=== PATIENT | male | born 1970 | race African-American/Black ===

== ENCOUNTER 2019-05-29 15:07 | Inpatient (IN) | payer OTHER ==
[2019-05-29 17:42] VITALS: BMI 31.3
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
[2019-05-29] MEDS ORDERED: chlordiazePOXIDE HCL 25 MG CAPSULE PO PRN (21:13)
[2019-05-29] MEDS ORDERED: MAGNESIUM HYDROX 2400MG/30ML ORAL SUSPENSION 30 ML CUP PO PRN (21:13)
[2019-05-29] MEDS ORDERED: MAG HYDROX/AL HYDROX/SIMETH 30 ML UNIT-DOSE CUP PO PRN (21:13)
[2019-05-29] MEDS ORDERED: BISMUTH SUBSALICYLATE 524 MG/30 ML UD PO PRN (21:13)
[2019-05-29] MEDS ORDERED: METHOCARBAMOL 500 MG TABLET PO PRN (21:13)
[2019-05-29] MEDS ORDERED: MELATONIN 5 MG TABLETS PO PRN (21:13)
[2019-05-29] MEDS ORDERED: ACETAMINOPHEN 325 MG TABLET (FP) PO PRN ×2 (21:13)
[2019-05-29] MEDS ORDERED: MENTHOL/PHENOL 1 EACH UD MM PRN (21:13)
[2019-05-29] MEDS ORDERED: IBUPROFEN 400 MG TABLET (FP) PO PRN (21:13)
[2019-05-29] MEDS ORDERED: hydrOXYzine PAMOATE 25 MG CAPSULE (FP) PO PRN (21:13)
[2019-05-29] MEDS ORDERED: MAGNESIUM CITRATE 300 ML BOTTLE PO PRN (21:13)
[2019-05-29] MEDS ORDERED: NICOTINE POLACRILEX 4 MG GUM BUC PRN (21:13)
[2019-05-29] MEDS ORDERED: QUEtiapine FUMARATE 100 MG TABLET (FP) PO SCH (22:00)
[2019-05-29] MEDS: chlordiazePOXIDE HCL 25 MG CAPSULE PO SCH (22:44)
[2019-05-29] MEDS: THIAMINE HCL 100 MG TABLET (FP) PO SCH (22:45)
[2019-05-30] MEDS: chlordiazePOXIDE HCL 25 MG CAPSULE PO SCH ×4 (06:07→22:37)
[2019-05-30 09:43] LABS: HEMATOCRIT 39.6 % (35.4-49); MCH 28.7 pg (25.7-33.7); MCHC 32.7 g/dl (32.0-35.9); MEAN CELL VOLUME 87.6 fl (80-96); MEAN PLT VOLUME 9.2 fl (7.5-11.1); PLATELET COUNT 247 K/MM3 (134-434); RBC 4.52 M/mm3 (4.00-5.60); RDW 15.9 % (11.9-15.9); WHITE BLOOD COUNT 3.9 K/mm3 (4.0-10.0)
[2019-05-30] MEDS ORDERED: DIVALPROEX SODIUM 500 MG TABLET E.C. PO SCH (10:00)
[2019-05-30] MEDS: HYDROCHLOROTHIAZIDE 12.5 MG CAPSULE (FP) PO SCH (10:21)
[2019-05-30] MEDS: PRENATAL VITAMINS W/ FOLIC ACID TABLET (FP) PO SCH (10:22)
[2019-05-30] MEDS ORDERED: ACETAMINOPHEN 325 MG TABLET (FP) PO ONE (11:05)
[2019-05-30] MEDS ORDERED: MAGNESIUM CITRATE 300 ML BOTTLE PO ONE ×2 (11:07→14:00)
[2019-05-30] MEDS ORDERED: MAGNESIUM HYDROX 2400MG/30ML ORAL SUSPENSION 30 ML CUP PO ONE (11:07)
[2019-05-30 11:10] LABS: ALBUMIN 3.3 g/dl (3.4-5.0); BILIRUBIN,TOTAL 0.7 mg/dL (0.2-1); BLOOD UREA NITROGEN 8.3 mg/dL (7-18); CALCIUM 8.7 mg/dL (8.5-10.1); CREATININE 0.9 mg/dL (0.55-1.3); POTASSIUM 3.3 mmol/L (3.5-5.1); TOT PROT 6.5 g/dl (6.4-8.2)
--- NOTE | 2019-05-30 11:13 | PN ---
S CIWA - CIWA Score Nausea/Vomitin-No Nausea/No Vomiting Muscle Tremors: 2 Anxiety: 2 Agitation: 2 Paroxysmal Sweats: 1-Minimal Palms Moist Orientation: 0-Oriented Tacttile Disturbances: 0-None Auditory Disturbances: 0-None Visual Disturbances: 0-None Headache: 1-Very Mild CIWA-Ar Total Score: 8 BHS Progress Note (SOAP) Subjective: 48 years old male admitted on 05/29/19 for alcohol withdrawal sx management treating with librium detox regimen c/o headache 08/31 tylenal 650 mg po x 1 c/o small hard stool abdomen + bowel sound x 4 soft no tenderness ate breakfast no nausea no vomiting deneis abdominal pain MOM 30 ml x 1 citroma 300 ml x 1 around 2 pm today senna 2 tabs po hs Objective: 05/30/19 11:15 Vital Signs Temperature 96 F L 05/30/19 09:15 Pulse Rate 75 05/30/19 09:15 Respiratory Rate 20 05/30/19 09:15 Blood Pressure 157/95 05/30/19 09:15 O2 Sat by Pulse Oximetry (%) Laboratory Last Values WBC 3.9 K/mm3 (4.0-10.0) L 05/30/19 08:00 RBC 4.52 M/mm3 (4.00-5.60) 05/30/19 08:00 Hgb 13.0 GM/dL (11.7-16.9) 05/30/19 08:00 Hct 39.6 % (35.4-49) 05/30/19 08:00 MCV 87.6 fl (80-96) 05/30/19 08:00 MCH 28.7 pg (25.7-33.7) 05/30/19 08:00 MCHC 32.7 g/dl (32.0-35.9) 05/30/19 08:00 RDW 15.9 % (11.9-15.9) D 05/30/19 08:00 Plt Count 247 K/MM3 (134-434) 05/30/19 08:00 MPV 9.2 fl (7.5-11.1) 05/30/19 08:00 Sodium 140 mmol/L (136-145) 05/30/19 08:00 Potassium 3.3 mmol/L (3.5-5.1) L 05/30/19 08:00 Chloride 104 mmol/L (98-107) 05/30/19 08:00 Carbon Dioxide 30 mmol/L (21-32) 05/30/19 08:00 Anion Gap 7 MMOL/L (8-16) L 05/30/19 08:00 BUN 8.3 mg/dL (7-18) 05/30/19 08:00 Creatinine 0.9 mg/dL (0.55-1.3) 05/30/19 08:00 Est GFR (CKD-EPI)AfAm 115.83 05/30/19 08:00 Est GFR (CKD-EPI)NonAf 99.94 05/30/19 08:00 POC Glucometer 108 UNITS (80-120) 05/30/19 06:08 Random Glucose 85 mg/dL (74-106) 05/30/19 08:00 Calcium 8.7 mg/dL (8.5-10.1) 05/30/19 08:00 Total Bilirubin 0.7 mg/dL (0.2-1) 05/30/19 08:00 AST 27 U/L (15-37) 05/30/19 08:00 ALT 24 U/L (13-61) 05/30/19 08:00 Alkaline Phosphatase 73 U/L (45-117) 05/30/19 08:00 Total Protein 6.5 g/dl (6.4-8.2) 05/30/19 08:00 Albumin 3.3 g/dl (3.4-5.0) L 05/30/19 08:00 lab noted K+ 3.3 05/30/19 11:17 K+ supplement x 4 days Assessment: 05/30/19 11:18 alcohol withdrawal Plan: librum regimen
[2019-05-30] MEDS: POTASSIUM CHLORIDE ORAL LIQUID 20 MEQ/15 ML PO SCH ×2 (11:40→22:38)
--- NOTE | 2019-05-30 12:41 | CONSULT ---
[facility] Psychiatric Consult - Data Date of interview: 05/30/19 Admission source: [facility] Identifying data: Patient declines interview.
[2019-05-30] MEDS: cloNIDine HCL 0.1 MG TABLET PO PRN (19:03)
[2019-05-30] MEDS: SENNOSIDES 8.6MG TABLET (FP) PO SCH (22:38)
[2019-05-30] MEDS: THIAMINE HCL 100 MG TABLET (FP) PO SCH (22:38)
[2019-05-31] MEDS: chlordiazePOXIDE HCL 25 MG CAPSULE PO SCH ×4 (06:22→22:06)
[2019-05-31] MEDS: PRENATAL VITAMINS W/ FOLIC ACID TABLET (FP) PO SCH (10:09)
[2019-05-31] MEDS: POTASSIUM CHLORIDE ORAL LIQUID 20 MEQ/15 ML PO SCH ×2 (10:11→21:41)
[2019-05-31] MEDS: HYDROCHLOROTHIAZIDE 12.5 MG CAPSULE (FP) PO SCH (10:11)
--- NOTE | 2019-05-31 10:59 | PN ---
S CIWA - CIWA Score Nausea/Vomitin-No Nausea/No Vomiting Muscle Tremors: 2 Anxiety: 2 Agitation: 1-Slight > Activity Paroxysmal Sweats: No Perspiration Orientation: 0-Oriented Tacttile Disturbances: 0-None Auditory Disturbances: 0-None Visual Disturbances: 0-None Headache: 0-None Present CIWA-Ar Total Score: 5 BHS Progress Note (SOAP) Subjective: 48 years old male admitted on 05/29/19 for alcohol withdrawal sx management treating with libirum detox regimen requests to be discharged one day early as per estimated discharge date of 06/03 case discuss with [facility] Objective: 05/31/19 10:58 Vital Signs Temperature 97.0 F L 05/31/19 09:22 Pulse Rate 75 05/31/19 09:22 Respiratory Rate 18 05/31/19 09:22 Blood Pressure 147/103 H 05/31/19 09:22 O2 Sat by Pulse Oximetry (%) Laboratory Last Values WBC 3.9 K/mm3 (4.0-10.0) L 05/30/19 08:00 RBC 4.52 M/mm3 (4.00-5.60) 05/30/19 08:00 Hgb 13.0 GM/dL (11.7-16.9) 05/30/19 08:00 Hct 39.6 % (35.4-49) 05/30/19 08:00 MCV 87.6 fl (80-96) 05/30/19 08:00 MCH 28.7 pg (25.7-33.7) 05/30/19 08:00 MCHC 32.7 g/dl (32.0-35.9) 05/30/19 08:00 RDW 15.9 % (11.9-15.9) D 05/30/19 08:00 Plt Count 247 K/MM3 (134-434) 05/30/19 08:00 MPV 9.2 fl (7.5-11.1) 05/30/19 08:00 Sodium 140 mmol/L (136-145) 05/30/19 08:00 Potassium 3.3 mmol/L (3.5-5.1) L 05/30/19 08:00 Chloride 104 mmol/L (98-107) 05/30/19 08:00 Carbon Dioxide 30 mmol/L (21-32) 05/30/19 08:00 Anion Gap 7 MMOL/L (8-16) L 05/30/19 08:00 BUN 8.3 mg/dL (7-18) 05/30/19 08:00 Creatinine 0.9 mg/dL (0.55-1.3) 05/30/19 08:00 Est GFR (CKD-EPI)AfAm 115.83 05/30/19 08:00 Est GFR (CKD-EPI)NonAf 99.94 05/30/19 08:00 POC Glucometer 108 UNITS (80-120) 05/30/19 06:08 Random Glucose 85 mg/dL (74-106) 05/30/19 08:00 Calcium 8.7 mg/dL (8.5-10.1) 05/30/19 08:00 Total Bilirubin 0.7 mg/dL (0.2-1) 05/30/19 08:00 AST 27 U/L (15-37) 05/30/19 08:00 ALT 24 U/L (13-61) 05/30/19 08:00 Alkaline Phosphatase 73 U/L (45-117) 05/30/19 08:00 Total Protein 6.5 g/dl (6.4-8.2) 05/30/19 08:00 Albumin 3.3 g/dl (3.4-5.0) L 05/30/19 08:00 RPR Titer Nonreactive (NONREACTIVE) 05/30/19 08:00 HIV 1&2 Antibody Screen Negative 05/30/19 08:00 HIV P24 Antigen Negative 05/30/19 08:00 lab noted 05/31/19 11:00 low K+ continue K+ supplement Assessment: 05/31/19 11:00 alcohol withdrawal Plan: librium regimen
--- NOTE | 2019-05-31 20:03 | PN ---
S Progress Note Note: Patient c/o inability to sleep and requesting seroquel or he will sign out. Patient refused to see on Psych on 05/30/19, for review of insomnia/MH meds. Patient informed that a partial dose will be given and no further doses will be provided unless seen by Psych.
[2019-05-31] MEDS: THIAMINE HCL 100 MG TABLET (FP) PO SCH (21:41)
[2019-05-31] MEDS: SENNOSIDES 8.6MG TABLET (FP) PO SCH (21:41)
[2019-05-31] MEDS ORDERED: QUEtiapine FUMARATE 50 MG TABLET PO ONE (23:00)
[2019-05-31] MEDS: cloNIDine HCL 0.1 MG TABLET PO PRN (23:12)
[2019-06-01] MEDS ORDERED: chlordiazePOXIDE HCL 10 MG CAPSULE PO PRN
[2019-06-01] MEDS: chlordiazePOXIDE HCL 10 MG CAPSULE PO SCH ×2 (06:07→10:10)
[2019-06-01] MEDS: HYDROCHLOROTHIAZIDE 12.5 MG CAPSULE (FP) PO SCH (10:10)
[2019-06-01] MEDS: PRENATAL VITAMINS W/ FOLIC ACID TABLET (FP) PO SCH (10:10)
[2019-06-01] MEDS: POTASSIUM CHLORIDE ORAL LIQUID 20 MEQ/15 ML PO SCH (10:11)
--- NOTE | 2019-06-01 11:18 | PN ---
S CIWA - CIWA Score Nausea/Vomitin-No Nausea/No Vomiting Muscle Tremors: 1-None Visible, but [place] Anxiety: 0-No Anxiety, at Ease Agitation: 0-Normal Activity Paroxysmal Sweats: 1-Minimal Palms Moist Orientation: 0-Oriented Tacttile Disturbances: 0-None Auditory Disturbances: 0-None Visual Disturbances: 0-None Headache: 0-None Present CIWA-Ar Total Score: 2 S Progress Note (SOAP) Subjective: 48 years old male admitted on 05/29/19 for alcohol withdrawal sx management treating with librium detox regimen feeling better today prefers to leave one day early as per estimated date of 04/12 case discuss with the nurse routine discharge is appropriated requests to leave the detox unit around 7 am that he is going to traveling far Objective: 06/01/19 11:15 Vital Signs Temperature 97.4 F L 06/01/19 09:33 Pulse Rate 85 06/01/19 09:33 Respiratory Rate 18 06/01/19 09:33 Blood Pressure 140/109 H 06/01/19 09:33 O2 Sat by Pulse Oximetry (%) Laboratory Last Values WBC 3.9 K/mm3 (4.0-10.0) L 05/30/19 08:00 RBC 4.52 M/mm3 (4.00-5.60) 05/30/19 08:00 Hgb 13.0 GM/dL (11.7-16.9) 05/30/19 08:00 Hct 39.6 % (35.4-49) 05/30/19 08:00 MCV 87.6 fl (80-96) 05/30/19 08:00 MCH 28.7 pg (25.7-33.7) 05/30/19 08:00 MCHC 32.7 g/dl (32.0-35.9) 05/30/19 08:00 RDW 15.9 % (11.9-15.9) D 05/30/19 08:00 Plt Count 247 K/MM3 (134-434) 05/30/19 08:00 MPV 9.2 fl (7.5-11.1) 05/30/19 08:00 Sodium 140 mmol/L (136-145) 05/30/19 08:00 Potassium 3.3 mmol/L (3.5-5.1) L 05/30/19 08:00 Chloride 104 mmol/L (98-107) 05/30/19 08:00 Carbon Dioxide 30 mmol/L (21-32) 05/30/19 08:00 Anion Gap 7 MMOL/L (8-16) L 05/30/19 08:00 BUN 8.3 mg/dL (7-18) 05/30/19 08:00 Creatinine 0.9 mg/dL (0.55-1.3) 05/30/19 08:00 Est GFR (CKD-EPI)AfAm 115.83 05/30/19 08:00 Est GFR (CKD-EPI)NonAf 99.94 05/30/19 08:00 POC Glucometer 108 UNITS (80-120) 05/30/19 06:08 Random Glucose 85 mg/dL (74-106) 05/30/19 08:00 Calcium 8.7 mg/dL (8.5-10.1) 05/30/19 08:00 Total Bilirubin 0.7 mg/dL (0.2-1) 05/30/19 08:00 AST 27 U/L (15-37) 05/30/19 08:00 ALT 24 U/L (13-61) 05/30/19 08:00 Alkaline Phosphatase 73 U/L (45-117) 05/30/19 08:00 Total Protein 6.5 g/dl (6.4-8.2) 05/30/19 08:00 Albumin 3.3 g/dl (3.4-5.0) L 05/30/19 08:00 RPR Titer Nonreactive (NONREACTIVE) 05/30/19 08:00 HIV 1&2 Antibody Screen Negative 05/30/19 08:00 HIV P24 Antigen Negative 05/30/19 08:00 lab noted K+ low with supplement patient is [facility] patient agrees to bringing in lab report for follow up 06/01/19 11:17 Assessment: 06/01/19 11:18 alcohol withdrawal Plan: librium regimen
[2019-06-01 13:03] VITALS: BP 130/94; PULSE 78; TEMP 97.5
--- NOTE | 2019-06-01 15:47 | DS ---
[facility] Detox Discharge Summary Admission Date: 05/29/19 Discharge Date: 06/01/19 - History Present History: Alcohol Dependence Additional Comments: 48 years old male admitted on 05/29/19 for alcohol withdrawal sx management treated with librium detox regimen patient tolerated well alert oriented x 3 respiratory clear lungs bilaterally on auscultation extremities full range of motion skin warm and dry Pertinent Past History: patient prefers to leave the detox unit today and contact aftercare program independently case discussed with the nurse routine discharge is appropriated - Physical Exam Results Vital Signs: Vital Signs Temperature 97.5 F L 06/01/19 13:01 Pulse Rate 78 06/01/19 13:01 Respiratory Rate 18 06/01/19 13:01 Blood Pressure 130/94 06/01/19 13:01 O2 Sat by Pulse Oximetry (%) Pertinent Admission Physical Exam Findings: alcohol withdrawal Laboratory Last Values WBC 3.9 K/mm3 (4.0-10.0) L 05/30/19 08:00 RBC 4.52 M/mm3 (4.00-5.60) 05/30/19 08:00 Hgb 13.0 GM/dL (11.7-16.9) 05/30/19 08:00 Hct 39.6 % (35.4-49) 05/30/19 08:00 MCV 87.6 fl (80-96) 05/30/19 08:00 MCH 28.7 pg (25.7-33.7) 05/30/19 08:00 MCHC 32.7 g/dl (32.0-35.9) 05/30/19 08:00 RDW 15.9 % (11.9-15.9) D 05/30/19 08:00 Plt Count 247 K/MM3 (134-434) 05/30/19 08:00 MPV 9.2 fl (7.5-11.1) 05/30/19 08:00 Sodium 140 mmol/L (136-145) 05/30/19 08:00 Potassium 3.3 mmol/L (3.5-5.1) L 05/30/19 08:00 Chloride 104 mmol/L (98-107) 05/30/19 08:00 Carbon Dioxide 30 mmol/L (21-32) 05/30/19 08:00 Anion Gap 7 MMOL/L (8-16) L 05/30/19 08:00 BUN 8.3 mg/dL (7-18) 05/30/19 08:00 Creatinine 0.9 mg/dL (0.55-1.3) 05/30/19 08:00 Est GFR (CKD-EPI)AfAm 115.83 05/30/19 08:00 Est GFR (CKD-EPI)NonAf 99.94 05/30/19 08:00 POC Glucometer 108 UNITS (80-120) 05/30/19 06:08 Random Glucose 85 mg/dL (74-106) 05/30/19 08:00 Calcium 8.7 mg/dL (8.5-10.1) 05/30/19 08:00 Total Bilirubin 0.7 mg/dL (0.2-1) 05/30/19 08:00 AST 27 U/L (15-37) 05/30/19 08:00 ALT 24 U/L (13-61) 05/30/19 08:00 Alkaline Phosphatase 73 U/L (45-117) 05/30/19 08:00 Total Protein 6.5 g/dl (6.4-8.2) 05/30/19 08:00 Albumin 3.3 g/dl (3.4-5.0) L 05/30/19 08:00 RPR Titer Nonreactive (NONREACTIVE) 05/30/19 08:00 HIV 1&2 Antibody Screen Negative 05/30/19 08:00 HIV P24 Antigen Negative 05/30/19 08:00 lab noted patient agrees to bringing in lab report to aftercare facility for follow up encourage the patient to follow up low K+ with community health service provider health teaching on weight loss and smoking cessation - Treatment Hospital Course: Detox Protocol Followed, Detoxed Safely, Responded well, Discharged Condition Good, Rehab Referral Accepted Patient has Accepted a Rehab Referral to: [facility] - Medication Discharge Medications: Ambulatory Orders Hydrochlorothiazide [Hctz] 25 mg PO DAILY 10/20/11 Divalproex [Depakote -] 500 mg PO DAILY #30 tablet.ec 08/20/15 Quetiapine Fumarate "Xr" [Seroquel XR] 300 mg PO BID #60 tablet 08/20/15 - Diagnosis (1) Alcohol dependence with uncomplicated withdrawal Status: Acute (2) DM (diabetes mellitus) Status: Chronic Qualifiers: Diabetes mellitus type: type 2 Diabetes mellitus complication status: without complication Qualified Code(s): E11.9 - Type 2 diabetes mellitus without complications (3) HTN (hypertension) Status: Chronic Qualifiers: Hypertension type: essential hypertension Qualified Code(s): I10 - Essential (primary) hypertension (4) Nicotine dependence Status: Acute Qualifiers: Nicotine product type: cigarettes Substance use status: in withdrawal Qualified Code(s): F17.213 - Nicotine dependence, cigarettes, with withdrawal - AMA Did Patient Leave Against Medical Advice: No CIWA Score - CIWA Score Nausea/Vomitin-No Nausea/No Vomiting Muscle Tremors: 1-None Visible, but [place] Anxiety: 0-No Anxiety, at Ease Agitation: 0-Normal Activity Paroxysmal Sweats: 1-Minimal Palms Moist Orientation: 0-Oriented Tacttile Disturbances: 0-None Auditory Disturbances: 0-None Visual Disturbances: 0-None Headache: 0-None Present CIWA-Ar Total Score: 2
[2019-06-02] MEDS ORDERED: chlordiazePOXIDE HCL 10 MG CAPSULE PO SCH (05:00)
[2019-06-03] MEDS ORDERED: chlordiazePOXIDE HCL 10 MG CAPSULE PO ONE (05:00)
== END 2019-06-01 15:40 | disposition home or self-care (01) | DRG 775 ==
LOC: YASAS 15:07 → Y3N 21:51
PROVIDERS: ADMIT Allergy & Immunology; ATTEND Allergy & Immunology
PROC: HZ2ZZZZ Detoxification Services for Substance Abuse Treatment (ICD-10-PCS; principal; 2019-05-29)
DX: F10.230 Alcohol dependence with withdrawal, uncomplicated (principal); F17.213 Nicotine dependence, cigarettes, with withdrawal; F25.9 Schizoaffective disorder, unspecified; F41.8 Other specified anxiety disorders; F32.9 Major depressive disorder, single episode, unspecified; E87.6 Hypokalemia; I10 Essential (primary) hypertension; E11.9 Type 2 diabetes mellitus without complications; K21.9 Gastro-esophageal reflux disease without esophagitis; Z91.013 Allergy to seafood
CPT/HCPCS: 36415; 80053; 82962; 85027; 86593; 87389; J0735

== ENCOUNTER 2020-07-15 13:02 | Inpatient (IN) | payer OTHER ==
[2020-07-15] MEDS ORDERED: BISMUTH SUBSALICYLATE 262 MG/15 ML BTL PO PRN (14:17)
[2020-07-15] MEDS ORDERED: MENTHOL/PHENOL 1 EACH UD MM PRN (14:17)
[2020-07-15] MEDS ORDERED: MAGNESIUM HYDROX 2400MG/30ML ORAL SUSPENSION 30 ML CUP PO PRN (14:17)
[2020-07-15] MEDS ORDERED: IBUPROFEN 400 MG TABLET (FP) PO PRN (14:17)
[2020-07-15] MEDS ORDERED: chlordiazePOXIDE HCL 25 MG CAPSULE PO PRN (14:17)
[2020-07-15] MEDS ORDERED: ACETAMINOPHEN 325 MG TABLET (FP) PO PRN (14:17)
[2020-07-15] MEDS ORDERED: ONDANSETRON *ODT* 4 MG TABLET SL PRN (14:17)
[2020-07-15] MEDS ORDERED: MAG HYDROX/AL HYDROX/SIMETH 30 ML UNIT-DOSE CUP PO PRN (14:17)
[2020-07-15] MEDS ORDERED: MAGNESIUM CITRATE 300 ML BOTTLE PO PRN (14:17)
[2020-07-15 14:31] VITALS: BMI 31.7
[2020-07-15] MEDS: chlordiazePOXIDE HCL 25 MG CAPSULE PO SCH ×2 (16:19→22:32)
[2020-07-15] MEDS: FAMOTIDINE 20 MG TABLET PO SCH ×2 (16:19→22:32)
[2020-07-15] MEDS: METHOCARBAMOL 500 MG TABLET PO PRN (16:20)
[2020-07-15] MEDS: NICOTINE POLACRILEX 2 MG GUM BUC PRN (16:21)
[2020-07-15] MEDS: NICOTINE 7 MG/24 HOURS TOPICAL PATCH TD SCH (16:21)
[2020-07-15] MEDS: PRENATAL VITAMINS W/ FOLIC ACID TABLET (FP) PO SCH (16:21)
[2020-07-15 16:34] LABS: POTASSIUM 3.8 mmol/L (3.5-5.1)
[2020-07-15 16:39] LABS: HEMATOCRIT 44.2 % (35.4-49); HEMOGLOBIN 14.5 GM/dL (11.7-16.9); MCH 28.8 pg (25.7-33.7); MCHC 32.7 g/dl (32.0-35.9); MEAN CELL VOLUME 88.1 fl (80-96); MEAN PLT VOLUME 8.8 fl (7.5-11.1); PLATELET COUNT 250 K/MM3 (134-434); RBC 5.01 M/mm3 (4.00-5.60); RDW 14.5 % (11.9-15.9); WHITE BLOOD COUNT 6.1 K/mm3 (4.0-10.0)
[2020-07-15 16:47] LABS: ALBUMIN 4.4 g/dl (3.4-5.0); BLOOD UREA NITROGEN 14.7 mg/dL (7-18); CALCIUM 8.6 mg/dL (8.5-10.1)
[2020-07-15 16:51] LABS: CREATININE 1.1 mg/dL (0.55-1.3)
[2020-07-15 16:52] LABS: BILIRUBIN,TOTAL 0.4 mg/dL (0.2-1); TOT PROT 8.4 g/dl (6.4-8.2)
[2020-07-15] MEDS: hydrOXYzine PAMOATE 25 MG CAPSULE (FP) PO SCH ×2 (17:59→22:32)
[2020-07-15] MEDS: MINERAL OIL/PETROLAT/WATER TOPICAL CREAM 113 GM JAR TP SCH (22:32)
[2020-07-15] MEDS: THIAMINE HCL 100 MG TABLET (FP) PO SCH (22:32)
[2020-07-15] MEDS: MELATONIN 5 MG TABLETS PO SCH (22:32)
[2020-07-16] MEDS: chlordiazePOXIDE HCL 25 MG CAPSULE PO SCH ×4 (05:20→22:05)
[2020-07-16] MEDS: hydrOXYzine PAMOATE 25 MG CAPSULE (FP) PO SCH ×2 (05:21→10:02)
[2020-07-16] MEDS: PRENATAL VITAMINS W/ FOLIC ACID TABLET (FP) PO SCH (10:03)
[2020-07-16] MEDS: NICOTINE 7 MG/24 HOURS TOPICAL PATCH TD SCH (10:03)
[2020-07-16] MEDS: FAMOTIDINE 20 MG TABLET PO SCH ×2 (10:03→22:07)
[2020-07-16] MEDS: MINERAL OIL/PETROLAT/WATER TOPICAL CREAM 113 GM JAR TP SCH ×2 (10:06→22:08)
[2020-07-16] MEDS: NICOTINE POLACRILEX 2 MG GUM BUC PRN (10:06)
[2020-07-16] MEDS ORDERED: hydrOXYzine PAMOATE 25 MG CAPSULE (FP) PO PRN (11:53)
[2020-07-16 13:53] LABS: HIV INTERPRETATION NEGATIVE (NEGATIVE)
[2020-07-16 17:48] LABS: EPI CELLS >36 /uL (0-25.1); HYALINE CASTS 4 /uL (0-3.1); PH,URINE 5.5 (5.0-8.0); URINE APPEARANCE CLEAR; URINE BACTERIA 447 /uL (0-1359); URINE BILIRUBIN NEGATIVE (NEGATIVE); URINE COLOR YELLOW; URINE GLUCOSE (UA) 2+ (NEGATIVE); URINE KETONE TRACE (NEGATIVE); URINE LEUK ESTERASE 1+ (NEGATIVE); URINE NITRITE NEGATIVE (NEGATIVE); URINE PROTEIN NEGATIVE (NEGATIVE); URINE RBC 6 /uL (0-23.9); URINE WBC 53 /uL (0-25.8)
[2020-07-16] MEDS ORDERED: QUEtiapine FUMARATE 50 MG TABLET PO SCH (22:00)
[2020-07-16] MEDS: METHOCARBAMOL 500 MG TABLET PO PRN (22:04)
[2020-07-16] MEDS: THIAMINE HCL 100 MG TABLET (FP) PO SCH (22:04)
[2020-07-16] MEDS: dilTIAZem HCL 60 MG TABLET PO SCH (22:04)
[2020-07-16] MEDS: MELATONIN 5 MG TABLETS PO SCH (22:05)
[2020-07-16] MEDS: DIVALPROEX SODIUM 500 MG TABLET E.C. PO SCH (22:05)
[2020-07-17] MEDS: chlordiazePOXIDE HCL 25 MG CAPSULE PO SCH ×2 (05:13→10:09)
[2020-07-17 09:39] VITALS: BP 107/65; PULSE 72; TEMP 96.8
[2020-07-17] MEDS ORDERED: HYDROCHLOROTHIAZIDE 25 MG TABLET (FP) PO SCH (10:00)
[2020-07-17] MEDS: PRENATAL VITAMINS W/ FOLIC ACID TABLET (FP) PO SCH (10:09)
[2020-07-17] MEDS: FAMOTIDINE 20 MG TABLET PO SCH (10:09)
[2020-07-17] MEDS: DIVALPROEX SODIUM 500 MG TABLET E.C. PO SCH (10:09)
[2020-07-17] MEDS: MINERAL OIL/PETROLAT/WATER TOPICAL CREAM 113 GM JAR TP SCH (10:11)
[2020-07-17] MEDS: NICOTINE 7 MG/24 HOURS TOPICAL PATCH TD SCH (10:11)
[2020-07-17] MEDS: dilTIAZem HCL 60 MG TABLET PO SCH (10:11)
[2020-07-18] MEDS ORDERED: chlordiazePOXIDE HCL 10 MG CAPSULE PO PRN
[2020-07-18] MEDS ORDERED: chlordiazePOXIDE HCL 10 MG CAPSULE PO SCH (05:00)
[2020-07-19] MEDS ORDERED: chlordiazePOXIDE HCL 10 MG CAPSULE PO SCH (05:00)
[2020-07-20] MEDS ORDERED: chlordiazePOXIDE HCL 10 MG CAPSULE PO ONE (05:00)
== END 2020-07-17 10:52 | disposition left against medical advice (07) | DRG 770 ==
LOC: YASAS 13:02 → Y3N 14:29
PROVIDERS: ADMIT Allergy & Immunology; ATTEND Allergy & Immunology
PROC: HZ2ZZZZ Detoxification Services for Substance Abuse Treatment (ICD-10-PCS; principal; 2020-07-15)
DX: F10.230 Alcohol dependence with withdrawal, uncomplicated (principal); F14.20 Cocaine dependence, uncomplicated; F17.210 Nicotine dependence, cigarettes, uncomplicated; F25.1 Schizoaffective disorder, depressive type; F19.24 Other psychoactive substance dependence with psychoactive substance-induced mood disorder; G47.00 Insomnia, unspecified; I48.91 Unspecified atrial fibrillation; K21.9 Gastro-esophageal reflux disease without esophagitis; E11.9 Type 2 diabetes mellitus without complications; M54.5 Low back pain; G89.29 Other chronic pain; Z91.013 Allergy to seafood; Z91.19 Patient's noncompliance with other medical treatment and regimen
CPT/HCPCS: 36415; 80053; 80164; 81003; 85027; 86780; 87389; C9803; U0003

== ENCOUNTER 2020-09-05 10:41 | Inpatient (IN) | payer OTHER ==
[2020-09-05 11:36] VITALS: BMI 34.3
[2020-09-05] MEDS ORDERED: chlordiazePOXIDE HCL 25 MG CAPSULE PO PRN (12:01)
[2020-09-05] MEDS ORDERED: MENTHOL/PHENOL 1 EACH UD MM PRN (12:01)
[2020-09-05] MEDS ORDERED: ONDANSETRON *ODT* 4 MG TABLET SL PRN (12:01)
[2020-09-05] MEDS ORDERED: MAGNESIUM CITRATE 300 ML BOTTLE PO PRN (12:01)
[2020-09-05] MEDS ORDERED: MAGNESIUM HYDROX 2400MG/30ML ORAL SUSPENSION 30 ML CUP PO PRN (12:01)
[2020-09-05] MEDS ORDERED: IBUPROFEN 400 MG TABLET (FP) PO PRN (12:01)
[2020-09-05] MEDS ORDERED: NICOTINE POLACRILEX 2 MG GUM BUC PRN (12:01)
[2020-09-05] MEDS ORDERED: ACETAMINOPHEN 325 MG TABLET (FP) PO PRN ×2 (12:01)
[2020-09-05] MEDS ORDERED: MAG HYDROX/AL HYDROX/SIMETH 30 ML UNIT-DOSE CUP PO PRN (12:01)
[2020-09-05] MEDS ORDERED: METHOCARBAMOL 500 MG TABLET PO PRN (12:01)
[2020-09-05] MEDS ORDERED: BISMUTH SUBSALICYLATE 262 MG/15 ML BTL PO PRN (12:01)
[2020-09-05] MEDS: hydrOXYzine PAMOATE 25 MG CAPSULE (FP) PO SCH ×3 (13:14→23:00)
[2020-09-05] MEDS: PRENATAL VITAMINS W/ FOLIC ACID TABLET (FP) PO SCH (13:16)
[2020-09-05] MEDS: chlordiazePOXIDE HCL 25 MG CAPSULE PO SCH ×3 (13:16→22:57)
[2020-09-05 14:37] LABS: CALCIUM 8.8 mg/dL (8.5-10.1)
[2020-09-05 14:38] LABS: ALBUMIN 3.8 g/dl (3.4-5.0); BLOOD UREA NITROGEN 15.9 mg/dL (7-18)
[2020-09-05 14:41] LABS: CREATININE 1.1 mg/dL (0.55-1.3)
[2020-09-05 14:42] LABS: BILIRUBIN,TOTAL 0.4 mg/dL (0.2-1); TOT PROT 7.4 g/dl (6.4-8.2)
[2020-09-05 14:58] LABS: HEMATOCRIT 40.6 % (35.4-49); HEMOGLOBIN 13.6 GM/dL (11.7-16.9); MCH 29.7 pg (25.7-33.7); MCHC 33.6 g/dl (32.0-35.9); MEAN CELL VOLUME 88.4 fl (80-96); MEAN PLT VOLUME 8.4 fl (7.5-11.1); PLATELET COUNT 297 K/MM3 (134-434); RBC 4.59 M/mm3 (4.00-5.60); RDW 14.6 % (11.9-15.9); WHITE BLOOD COUNT 5.1 K/mm3 (4.0-10.0)
[2020-09-05 15:29] LABS: HIV INTERPRETATION NEGATIVE (NEGATIVE)
[2020-09-05] MEDS: dilTIAZem HCL 60 MG TABLET PO SCH (22:00)
[2020-09-05] MEDS: PANTOPRAZOLE 40 MG TABLET PO SCH (22:57)
[2020-09-05] MEDS: MELATONIN 5 MG TABLETS PO SCH (22:58)
[2020-09-05] MEDS: THIAMINE HCL 100 MG TABLET (FP) PO SCH (22:59)
[2020-09-06] MEDS: chlordiazePOXIDE HCL 25 MG CAPSULE PO SCH ×4 (07:05→23:34)
[2020-09-06] MEDS: hydrOXYzine PAMOATE 25 MG CAPSULE (FP) PO SCH ×5 (07:05→23:34)
[2020-09-06] MEDS: PRENATAL VITAMINS W/ FOLIC ACID TABLET (FP) PO SCH (10:21)
[2020-09-06] MEDS: NICOTINE 21 MG/24 HOURS TOPICAL PATCH TD SCH (10:22)
[2020-09-06] MEDS: PANTOPRAZOLE 40 MG TABLET PO SCH ×2 (10:22→23:34)
[2020-09-06] MEDS: dilTIAZem HCL 60 MG TABLET PO SCH ×2 (10:22→23:34)
[2020-09-06] MEDS: HYDROCHLOROTHIAZIDE 25 MG TABLET (FP) PO SCH (12:57)
[2020-09-06] MEDS: THIAMINE HCL 100 MG TABLET (FP) PO SCH (23:34)
[2020-09-06] MEDS: MELATONIN 5 MG TABLETS PO SCH (23:34)
[2020-09-07] MEDS: hydrOXYzine PAMOATE 25 MG CAPSULE (FP) PO SCH ×5 (06:18→22:16)
[2020-09-07] MEDS: chlordiazePOXIDE HCL 25 MG CAPSULE PO SCH ×4 (06:19→22:20)
[2020-09-07] MEDS: HYDROCHLOROTHIAZIDE 25 MG TABLET (FP) PO SCH (11:14)
[2020-09-07] MEDS: PANTOPRAZOLE 40 MG TABLET PO SCH ×2 (11:14→22:16)
[2020-09-07] MEDS: dilTIAZem HCL 60 MG TABLET PO SCH ×2 (11:15→22:16)
[2020-09-07] MEDS: PRENATAL VITAMINS W/ FOLIC ACID TABLET (FP) PO SCH (11:15)
[2020-09-07] MEDS: NICOTINE 21 MG/24 HOURS TOPICAL PATCH TD SCH (11:15)
[2020-09-07] MEDS ORDERED: dilTIAZem HCL 60 MG TABLET PO SCH (22:00)
[2020-09-07] MEDS: THIAMINE HCL 100 MG TABLET (FP) PO SCH (22:16)
[2020-09-07] MEDS: MELATONIN 5 MG TABLETS PO SCH (22:19)
[2020-09-08] MEDS ORDERED: chlordiazePOXIDE HCL 10 MG CAPSULE PO PRN
[2020-09-08] MEDS: chlordiazePOXIDE HCL 10 MG CAPSULE PO SCH ×4 (06:10→23:44)
[2020-09-08] MEDS: hydrOXYzine PAMOATE 25 MG CAPSULE (FP) PO SCH ×5 (06:11→22:17)
[2020-09-08] MEDS: dilTIAZem HCL 60 MG TABLET PO SCH ×3 (06:13→22:17)
[2020-09-08] MEDS: PANTOPRAZOLE 40 MG TABLET PO SCH ×2 (10:08→22:17)
[2020-09-08] MEDS: NICOTINE 21 MG/24 HOURS TOPICAL PATCH TD SCH (10:08)
[2020-09-08] MEDS: HYDROCHLOROTHIAZIDE 25 MG TABLET (FP) PO SCH (10:08)
[2020-09-08] MEDS: PRENATAL VITAMINS W/ FOLIC ACID TABLET (FP) PO SCH (10:08)
[2020-09-08] MEDS: THIAMINE HCL 100 MG TABLET (FP) PO SCH (22:16)
[2020-09-08] MEDS: MELATONIN 5 MG TABLETS PO SCH (22:17)
[2020-09-09] MEDS: dilTIAZem HCL 60 MG TABLET PO SCH ×3 (07:26→22:10)
[2020-09-09] MEDS: chlordiazePOXIDE HCL 10 MG CAPSULE PO SCH ×2 (07:26→18:10)
[2020-09-09] MEDS: hydrOXYzine PAMOATE 25 MG CAPSULE (FP) PO SCH ×5 (07:28→22:09)
[2020-09-09] MEDS: PRENATAL VITAMINS W/ FOLIC ACID TABLET (FP) PO SCH (10:18)
[2020-09-09] MEDS: NICOTINE 21 MG/24 HOURS TOPICAL PATCH TD SCH (10:18)
[2020-09-09] MEDS: HYDROCHLOROTHIAZIDE 25 MG TABLET (FP) PO SCH (10:18)
[2020-09-09] MEDS: PANTOPRAZOLE 40 MG TABLET PO SCH ×2 (10:18→22:09)
[2020-09-09] MEDS: THIAMINE HCL 100 MG TABLET (FP) PO SCH (22:09)
[2020-09-09] MEDS: MELATONIN 5 MG TABLETS PO SCH (22:09)
[2020-09-10] MEDS ORDERED: chlordiazePOXIDE HCL 10 MG CAPSULE PO ONE (05:00)
[2020-09-10] MEDS: hydrOXYzine PAMOATE 25 MG CAPSULE (FP) PO SCH ×2 (06:28→10:16)
[2020-09-10] MEDS: dilTIAZem HCL 60 MG TABLET PO SCH (06:28)
[2020-09-10 09:21] VITALS: BP 145/100; PULSE 77; TEMP 98
[2020-09-10] MEDS: HYDROCHLOROTHIAZIDE 25 MG TABLET (FP) PO SCH (10:15)
[2020-09-10] MEDS: PRENATAL VITAMINS W/ FOLIC ACID TABLET (FP) PO SCH (10:15)
[2020-09-10] MEDS: NICOTINE 21 MG/24 HOURS TOPICAL PATCH TD SCH (10:15)
[2020-09-10] MEDS: PANTOPRAZOLE 40 MG TABLET PO SCH (10:15)
== END 2020-09-10 14:22 | disposition other institution (70) | DRG 775 ==
LOC: YASAS 10:41 → Y6N 12:08
PROVIDERS: ADMIT Allergy & Immunology; ATTEND Allergy & Immunology
PROC: HZ2ZZZZ Detoxification Services for Substance Abuse Treatment (ICD-10-PCS; principal; 2020-09-05)
DX: F10.230 Alcohol dependence with withdrawal, uncomplicated (principal); F12.20 Cannabis dependence, uncomplicated; F17.213 Nicotine dependence, cigarettes, with withdrawal; F31.9 Bipolar disorder, unspecified; F41.9 Anxiety disorder, unspecified; G47.00 Insomnia, unspecified; I48.91 Unspecified atrial fibrillation; I10 Essential (primary) hypertension; I35.1 Nonrheumatic aortic (valve) insufficiency; K21.9 Gastro-esophageal reflux disease without esophagitis; E11.9 Type 2 diabetes mellitus without complications; M54.5 Low back pain; G89.29 Other chronic pain
CPT/HCPCS: 36415; 80053; 85027; 86780; 87389; C9803; U0003; U0005

== ENCOUNTER 2020-09-10 14:03 | Inpatient (IN) | payer OTHER ==
[2020-09-10] MEDS ORDERED: LOPERAMIDE HCL 2 MG CAPSULE PO PRN (14:13)
[2020-09-10] MEDS ORDERED: guaiFENesin 200 MG/10 ML 10 ML UNIT-DOSE CUPS PO PRN (14:13)
[2020-09-10] MEDS ORDERED: MAG HYDROX/AL HYDROX/SIMETH 30 ML UNIT-DOSE CUP PO PRN (14:13)
[2020-09-10] MEDS ORDERED: IBUPROFEN 400 MG TABLET (FP) PO PRN (14:13)
[2020-09-10] MEDS ORDERED: MENTHOL/PHENOL 1 EACH UD MM PRN (14:13)
[2020-09-10] MEDS ORDERED: ACETAMINOPHEN 325 MG TABLET (FP) PO PRN (14:13)
[2020-09-10] MEDS ORDERED: P-EPHED 60MG/TRIPROLIDI 2.5MG TABLET PO PRN (14:13)
[2020-09-10] MEDS ORDERED: MAGNESIUM HYDROX 2400MG/30ML ORAL SUSPENSION 30 ML CUP PO PRN (14:13)
[2020-09-10] MEDS ORDERED: MAGNESIUM CITRATE 300 ML BOTTLE PO PRN (14:13)
[2020-09-10] MEDS: THIAMINE HCL 100 MG TABLET (FP) PO SCH (21:09)
[2020-09-10] MEDS: MELATONIN 5 MG TABLETS PO PRN (21:09)
[2020-09-10] MEDS: DIVALPROEX SODIUM 500 MG TABLET E.C. PO SCH (21:11)
[2020-09-10] MEDS: PANTOPRAZOLE 40 MG TABLET PO SCH (21:11)
[2020-09-10] MEDS ORDERED: MELATONIN 5 MG TABLETS PO SCH (22:00)
[2020-09-10] MEDS ORDERED: dilTIAZem HCL 60 MG TABLET PO SCH (22:00)
[2020-09-11] MEDS: PANTOPRAZOLE 40 MG TABLET PO SCH ×2 (10:46→21:45)
[2020-09-11] MEDS: DIVALPROEX SODIUM 500 MG TABLET E.C. PO SCH ×2 (10:46→21:46)
[2020-09-11] MEDS: PRENATAL VITAMINS W/ FOLIC ACID TABLET (FP) PO SCH (10:46)
[2020-09-11] MEDS: HYDROCHLOROTHIAZIDE 25 MG TABLET (FP) PO SCH (10:47)
[2020-09-11] MEDS: dilTIAZem HCL 60 MG TABLET PO SCH (17:49)
[2020-09-11] MEDS: THIAMINE HCL 100 MG TABLET (FP) PO SCH (21:46)
[2020-09-11] MEDS: MELATONIN 5 MG TABLETS PO PRN (21:47)
[2020-09-12] MEDS: dilTIAZem HCL 60 MG TABLET PO SCH ×2 (06:14→17:46)
[2020-09-12] MEDS: DIVALPROEX SODIUM 500 MG TABLET E.C. PO SCH ×2 (09:58→21:01)
[2020-09-12] MEDS: PANTOPRAZOLE 40 MG TABLET PO SCH ×2 (09:58→21:01)
[2020-09-12] MEDS: HYDROCHLOROTHIAZIDE 25 MG TABLET (FP) PO SCH (09:58)
[2020-09-12] MEDS: PRENATAL VITAMINS W/ FOLIC ACID TABLET (FP) PO SCH (09:58)
[2020-09-12] MEDS: MELATONIN 5 MG TABLETS PO PRN (21:00)
[2020-09-12] MEDS: THIAMINE HCL 100 MG TABLET (FP) PO SCH (21:00)
[2020-09-13] MEDS: dilTIAZem HCL 60 MG TABLET PO SCH ×2 (06:46→18:51)
[2020-09-13] MEDS: PRENATAL VITAMINS W/ FOLIC ACID TABLET (FP) PO SCH (10:25)
[2020-09-13] MEDS: HYDROCHLOROTHIAZIDE 25 MG TABLET (FP) PO SCH (10:25)
[2020-09-13] MEDS: DIVALPROEX SODIUM 500 MG TABLET E.C. PO SCH ×2 (10:26→21:06)
[2020-09-13] MEDS: PANTOPRAZOLE 40 MG TABLET PO SCH ×2 (10:26→21:06)
[2020-09-13] MEDS: THIAMINE HCL 100 MG TABLET (FP) PO SCH (21:06)
[2020-09-13] MEDS: MELATONIN 5 MG TABLETS PO PRN (21:07)
[2020-09-14 05:09] LABS: SARS-CoV-2 NAA Not Detected (Not Detected)
[2020-09-14] MEDS: dilTIAZem HCL 60 MG TABLET PO SCH ×2 (06:48→17:18)
[2020-09-14] MEDS: NICOTINE POLACRILEX 2 MG GUM BUC PRN ×3 (07:36→21:05)
[2020-09-14] MEDS: PRENATAL VITAMINS W/ FOLIC ACID TABLET (FP) PO SCH (10:23)
[2020-09-14] MEDS: PANTOPRAZOLE 40 MG TABLET PO SCH ×2 (10:23→21:04)
[2020-09-14] MEDS: HYDROCHLOROTHIAZIDE 25 MG TABLET (FP) PO SCH (10:23)
[2020-09-14] MEDS: DIVALPROEX SODIUM 500 MG TABLET E.C. PO SCH ×2 (10:24→21:04)
[2020-09-14] MEDS: MELATONIN 5 MG TABLETS PO PRN (21:04)
[2020-09-14] MEDS: THIAMINE HCL 100 MG TABLET (FP) PO SCH (21:04)
[2020-09-15] MEDS: dilTIAZem HCL 60 MG TABLET PO SCH ×2 (05:58→17:37)
[2020-09-15] MEDS ORDERED: cloNIDine HCL 0.1 MG TABLET PO ONE (07:21)
[2020-09-15] MEDS: DIVALPROEX SODIUM 500 MG TABLET E.C. PO SCH ×2 (10:09→21:12)
[2020-09-15] MEDS: NICOTINE POLACRILEX 2 MG GUM BUC PRN ×2 (10:09→17:38)
[2020-09-15] MEDS: PRENATAL VITAMINS W/ FOLIC ACID TABLET (FP) PO SCH (10:09)
[2020-09-15] MEDS: PANTOPRAZOLE 40 MG TABLET PO SCH ×2 (10:09→21:12)
[2020-09-15] MEDS: HYDROCHLOROTHIAZIDE 25 MG TABLET (FP) PO SCH (10:09)
[2020-09-15] MEDS: MELATONIN 5 MG TABLETS PO PRN (21:13)
[2020-09-15] MEDS: THIAMINE HCL 100 MG TABLET (FP) PO SCH (21:54)
[2020-09-16] MEDS: dilTIAZem HCL 60 MG TABLET PO SCH ×2 (06:14→17:18)
[2020-09-16] MEDS: DIVALPROEX SODIUM 500 MG TABLET E.C. PO SCH ×2 (09:39→21:16)
[2020-09-16] MEDS: HYDROCHLOROTHIAZIDE 25 MG TABLET (FP) PO SCH (09:39)
[2020-09-16] MEDS: PRENATAL VITAMINS W/ FOLIC ACID TABLET (FP) PO SCH (09:39)
[2020-09-16] MEDS: NICOTINE POLACRILEX 2 MG GUM BUC PRN (09:39)
[2020-09-16] MEDS: PANTOPRAZOLE 40 MG TABLET PO SCH ×2 (10:01→21:16)
[2020-09-16] MEDS: TOLNAFTATE 1% CREAM 15 GM TUBE TP SCH ×2 (13:20→21:17)
[2020-09-16] MEDS: THIAMINE HCL 100 MG TABLET (FP) PO SCH (21:16)
[2020-09-16] MEDS: MELATONIN 5 MG TABLETS PO PRN (21:16)
[2020-09-17] MEDS: dilTIAZem HCL 60 MG TABLET PO SCH ×2 (06:00→17:37)
[2020-09-17] MEDS: TOLNAFTATE 1% CREAM 15 GM TUBE TP SCH ×2 (10:08→21:03)
[2020-09-17] MEDS: PANTOPRAZOLE 40 MG TABLET PO SCH ×2 (10:08→21:01)
[2020-09-17] MEDS: HYDROCHLOROTHIAZIDE 25 MG TABLET (FP) PO SCH (10:08)
[2020-09-17] MEDS: PRENATAL VITAMINS W/ FOLIC ACID TABLET (FP) PO SCH (10:08)
[2020-09-17] MEDS: DIVALPROEX SODIUM 500 MG TABLET E.C. PO SCH ×2 (10:08→21:01)
[2020-09-17] MEDS: NICOTINE POLACRILEX 2 MG GUM BUC PRN (10:09)
[2020-09-17] MEDS: THIAMINE HCL 100 MG TABLET (FP) PO SCH (21:00)
[2020-09-17] MEDS: MELATONIN 5 MG TABLETS PO PRN (21:01)
[2020-09-18] MEDS: dilTIAZem HCL 60 MG TABLET PO SCH ×2 (06:25→17:59)
[2020-09-18 07:08] VITALS: TEMP 97.3
[2020-09-18] MEDS: NICOTINE POLACRILEX 2 MG GUM BUC PRN (08:38)
[2020-09-18] MEDS: PRENATAL VITAMINS W/ FOLIC ACID TABLET (FP) PO SCH (10:16)
[2020-09-18] MEDS: PANTOPRAZOLE 40 MG TABLET PO SCH (10:16)
[2020-09-18] MEDS: HYDROCHLOROTHIAZIDE 25 MG TABLET (FP) PO SCH (10:16)
[2020-09-18] MEDS: DIVALPROEX SODIUM 500 MG TABLET E.C. PO SCH (10:16)
[2020-09-18] MEDS: TOLNAFTATE 1% CREAM 15 GM TUBE TP SCH (10:19)
[2020-09-18 20:35] VITALS: BP 173/103; PULSE 90
== END 2020-09-18 20:30 | disposition home or self-care (01) | DRG 772 ==
LOC: YASAS 14:03 → Y3W 14:04
PROVIDERS: ADMIT Allergy & Immunology; ATTEND Allergy & Immunology
PROC: HZ42ZZZ Group Counseling for Substance Abuse Treatment, Cognitive-Behavioral (ICD-10-PCS; principal; 2020-09-10)
DX: F10.20 Alcohol dependence, uncomplicated (principal); F12.20 Cannabis dependence, uncomplicated; F17.210 Nicotine dependence, cigarettes, uncomplicated; F19.282 Other psychoactive substance dependence with psychoactive substance-induced sleep disorder; F19.24 Other psychoactive substance dependence with psychoactive substance-induced mood disorder; F25.1 Schizoaffective disorder, depressive type; I48.91 Unspecified atrial fibrillation; E11.9 Type 2 diabetes mellitus without complications; K21.9 Gastro-esophageal reflux disease without esophagitis; I35.1 Nonrheumatic aortic (valve) insufficiency; M54.5 Low back pain; G89.29 Other chronic pain
CPT/HCPCS: C9803; J0735; U0003; U0005

== ENCOUNTER 2020-12-02 15:09 | Inpatient (IN) | payer OTHER ==
[2020-12-02] MEDS ORDERED: LISINOPRIL 10 MG TABLET PO ONE (15:47)
[2020-12-02 15:58] VITALS: BMI 32.3
[2020-12-02] MEDS ORDERED: cloNIDine HCL 0.1 MG TABLET PO ONE (17:23)
[2020-12-02] MEDS ORDERED: cloNIDine HCL 0.1 MG TABLET ONE (17:32)
[2020-12-02] MEDS ORDERED: NICOTINE POLACRILEX 2 MG GUM BUC PRN (17:35)
[2020-12-02] MEDS ORDERED: BISMUTH SUBSALICYLATE 524 MG/30 ML PO PRN (17:35)
[2020-12-02] MEDS ORDERED: MAGNESIUM CITRATE 300 ML BOTTLE PO PRN (17:35)
[2020-12-02] MEDS ORDERED: MENTHOL/PHENOL 1 EACH UD MM PRN (17:35)
[2020-12-02] MEDS ORDERED: LORazepam 1 MG TABLET PO PRN (17:35)
[2020-12-02] MEDS ORDERED: ACETAMINOPHEN 325 MG TABLET (FP) PO PRN ×2 (17:35)
[2020-12-02] MEDS ORDERED: ONDANSETRON *ODT* 4 MG TABLET SL PRN (17:35)
[2020-12-02] MEDS ORDERED: IBUPROFEN 400 MG TABLET (FP) PO PRN (17:35)
[2020-12-02] MEDS ORDERED: MAGNESIUM HYDROX 2400MG/30ML ORAL SUSPENSION 30 ML CUP PO PRN (17:35)
[2020-12-02] MEDS ORDERED: METHOCARBAMOL 500 MG TABLET PO PRN (17:35)
[2020-12-02] MEDS ORDERED: MAG HYDROX/AL HYDROX/SIMETH 30 ML UNIT-DOSE CUP PO PRN (17:35)
[2020-12-02] MEDS ORDERED: PANTOPRAZOLE 40 MG TABLET PO PRN (17:36)
[2020-12-02] MEDS: hydrOXYzine PAMOATE 25 MG CAPSULE (FP) PO SCH ×2 (19:31→22:34)
[2020-12-02] MEDS: HYDROCHLOROTHIAZIDE 25 MG TABLET (FP) PO SCH (19:51)
[2020-12-02] MEDS ORDERED: ALBUTEROL SO4 HFA INHALER IH ONE (20:30)
[2020-12-02] MEDS ORDERED: DIVALPROEX SODIUM 500 MG TABLET E.C. PO SCH (22:00)
[2020-12-02] MEDS: LORazepam 2 MG TABLET PO SCH (22:34)
[2020-12-02] MEDS: THIAMINE HCL 100 MG TABLET (FP) PO SCH (22:34)
[2020-12-02] MEDS: MELATONIN 5 MG TABLETS PO SCH (22:34)
[2020-12-03] MEDS: dilTIAZem HCL 60 MG TABLET PO SCH ×3 (00:01→22:07)
[2020-12-03] MEDS: hydrOXYzine PAMOATE 25 MG CAPSULE (FP) PO SCH (06:09)
[2020-12-03] MEDS: LORazepam 2 MG TABLET PO SCH ×4 (06:09→22:08)
[2020-12-03] MEDS ORDERED: HYDROCHLOROTHIAZIDE 25 MG TABLET (FP) PO SCH ×2 (10:00→19:36)
[2020-12-03] MEDS: hydrOXYzine PAMOATE 25 MG CAPSULE (FP) PO PRN (10:15)
[2020-12-03] MEDS: PRENATAL VITAMINS W/ FOLIC ACID TABLET (FP) PO SCH (10:15)
[2020-12-03] MEDS: HYDROCHLOROTHIAZIDE 25 MG TABLET (FP) PO SCH (10:16)
[2020-12-03] MEDS: DIVALPROEX SODIUM 500 MG TABLET E.C. PO SCH ×2 (10:16→22:07)
[2020-12-03 12:40] LABS: HEMATOCRIT 37.7 % (35.4-49); HEMOGLOBIN 12.8 GM/dL (11.7-16.9); MCH 29.2 pg (25.7-33.7); MCHC 33.8 g/dl (32.0-35.9); MEAN CELL VOLUME 86.2 fl (80-96); MEAN PLT VOLUME 8.2 fl (7.5-11.1); PLATELET COUNT 288 10^3/uL (134-434); RBC 4.37 M/mm3 (4.00-5.60); WHITE BLOOD COUNT 3.9 K/mm3 (4.0-10.0)
[2020-12-03 12:54] LABS: ALBUMIN 3.7 g/dl (3.4-5.0)
[2020-12-03 12:55] LABS: BLOOD UREA NITROGEN 11.8 mg/dL (7-18)
[2020-12-03 12:56] LABS: BILIRUBIN,TOTAL 0.9 mg/dL (0.2-1)
[2020-12-03 12:57] LABS: CALCIUM 8.4 mg/dL (8.5-10.1)
[2020-12-03 13:57] LABS: HIV INTERPRETATION NEGATIVE (NEGATIVE)
[2020-12-03] MEDS ORDERED: cloNIDine HCL 0.1 MG TABLET PO ONE (17:55)
[2020-12-03] MEDS: THIAMINE HCL 100 MG TABLET (FP) PO SCH (22:07)
[2020-12-03] MEDS: MELATONIN 5 MG TABLETS PO SCH (22:15)
[2020-12-04] MEDS: LORazepam 1 MG TABLET PO SCH ×4 (05:56→22:16)
[2020-12-04] MEDS: DIVALPROEX SODIUM 500 MG TABLET E.C. PO SCH ×2 (10:24→22:16)
[2020-12-04] MEDS: dilTIAZem HCL 60 MG TABLET PO SCH ×2 (10:24→22:16)
[2020-12-04] MEDS: HYDROCHLOROTHIAZIDE 25 MG TABLET (FP) PO SCH (10:24)
[2020-12-04] MEDS: PRENATAL VITAMINS W/ FOLIC ACID TABLET (FP) PO SCH (10:25)
[2020-12-04] MEDS ORDERED: cloNIDine HCL 0.1 MG TABLET PO ONE (17:58)
[2020-12-04] MEDS: THIAMINE HCL 100 MG TABLET (FP) PO SCH (22:16)
[2020-12-04] MEDS: MELATONIN 5 MG TABLETS PO SCH (22:20)
[2020-12-05] MEDS ORDERED: LORazepam 0.5 MG TABLET PO PRN
[2020-12-05] MEDS: LORazepam 0.5 MG TABLET PO SCH ×4 (06:56→22:02)
[2020-12-05] MEDS: PRENATAL VITAMINS W/ FOLIC ACID TABLET (FP) PO SCH (10:23)
[2020-12-05] MEDS: HYDROCHLOROTHIAZIDE 25 MG TABLET (FP) PO SCH (10:23)
[2020-12-05] MEDS: DIVALPROEX SODIUM 500 MG TABLET E.C. PO SCH ×2 (10:23→22:04)
[2020-12-05] MEDS: dilTIAZem HCL 60 MG TABLET PO SCH ×2 (10:23→22:04)
[2020-12-05] MEDS: THIAMINE HCL 100 MG TABLET (FP) PO SCH (22:02)
[2020-12-05] MEDS: MELATONIN 5 MG TABLETS PO SCH (22:03)
[2020-12-06] MEDS ORDERED: LORazepam 0.5 MG TABLET PO ONE (05:00)
[2020-12-06 06:56] VITALS: BP 149/93; PULSE 60; TEMP 97.1
[2020-12-06] MEDS: DIVALPROEX SODIUM 500 MG TABLET E.C. PO SCH (10:10)
[2020-12-06] MEDS: HYDROCHLOROTHIAZIDE 25 MG TABLET (FP) PO SCH (10:10)
[2020-12-06] MEDS: dilTIAZem HCL 60 MG TABLET PO SCH (10:10)
[2020-12-06] MEDS: hydrOXYzine PAMOATE 25 MG CAPSULE (FP) PO PRN (10:11)
[2020-12-06] MEDS: PRENATAL VITAMINS W/ FOLIC ACID TABLET (FP) PO SCH (10:11)
== END 2020-12-06 12:45 | disposition other institution (70) | DRG 774 ==
LOC: YASAS 15:09 → Y3N 18:39
PROVIDERS: ADMIT Allergy & Immunology; ATTEND Allergy & Immunology
PROC: HZ2ZZZZ Detoxification Services for Substance Abuse Treatment (ICD-10-PCS; principal; 2020-12-02)
DX: F10.230 Alcohol dependence with withdrawal, uncomplicated (principal); F14.20 Cocaine dependence, uncomplicated; F16.20 Hallucinogen dependence, uncomplicated; F12.20 Cannabis dependence, uncomplicated; F17.210 Nicotine dependence, cigarettes, uncomplicated; F19.282 Other psychoactive substance dependence with psychoactive substance-induced sleep disorder; F25.1 Schizoaffective disorder, depressive type; E11.9 Type 2 diabetes mellitus without complications; I10 Essential (primary) hypertension; K21.9 Gastro-esophageal reflux disease without esophagitis; M54.5 Low back pain; G89.29 Other chronic pain; Z86.79 Personal history of other diseases of the circulatory system; Z91.013 Allergy to seafood
CPT/HCPCS: 36415; 80053; 80164; 85027; 86780; 87389; 93005; 93010; C9803; J0735; U0003; U0005